=== PATIENT | female | born 1985 | race Caucasian/White ===

== ENCOUNTER 2018-04-10 10:54 | Inpatient (IN) | payer OTHER ==
[2018-04-10] MEDS ORDERED: PROMETHAZINE 25 MG/ML VIAL IV PRN ×2 (11:50)
[2018-04-10] MEDS ORDERED: BUTORPHANOL 1 MG/ML INJ IV PRN (11:50)
[2018-04-10] MEDS ORDERED: Ringers Lactate 1,000 ML IV PRN (11:50)
[2018-04-10] MEDS ORDERED: CARBOPROST TROME 250 MCG/ML IM PRN (11:50)
[2018-04-10] MEDS ORDERED: METHYLERGONOVINE 0.2MG/ML AMP IM PRN (11:50)
[2018-04-10] MEDS ORDERED: ROPIVACAINE HCL 100 ML IV ONE (11:56)
[2018-04-10] MEDS ORDERED: ROPIVACAINE HCL 0 ML ONE (11:56)
[2018-04-10] MEDS ORDERED: OXYTOCIN/LR 20 UNIT/1,000 ML BAG IV SCH (12:00)
[2018-04-10] MEDS ORDERED: Ringers Lactate 1,000 ML IV SCH (12:00)
[2018-04-10 12:13] LABS: RPR Titer ND
[2018-04-10 12:19] LABS: Absolute Lymphocytes (CBC) 1.5 K/uL (0.7-4.9); Absolute Monocytes 0.8 K/uL (0.1-1.3); Absolute Neutrophil 9.4 K/uL (1.8-8.0); Basophils % 0.4 % (0-1.3); Eosinophils % 0.6 % (0-4.4); Hematocrit 37.6 % (36.0-45.0); Lymphocytes % 12.7 % (15.3-44.8); MCH 33.1 pg (27.0-35.0); Urine Appearance CLEAR; Urine Bilirubin NEGATIVE (NEG); Urine Blood NEGATIVE (NEG); Urine Color YELLOW; Urine Glucose NEGATIVE (NEG); Urine Protein NEGATIVE (NEG); Urine Urobilinogen 0.2 mg/dL (0.2-1.0); Urine pH 7.5 (5.0-7.0)
[2018-04-10 12:21] LABS: Urine Microscopic Reflex ORDER UMIC
[2018-04-10] MEDS ORDERED: FENTANYL CITR 100 MCG/2 ML ONE (12:35)
[2018-04-10 12:40] LABS: Urine Bacteria <20 /HPF (<20); Urine Culture Reflex Order REFLEXED; Urine RBC <5 /HPF (NONE SEEN)
[2018-04-10] MEDS ORDERED: LIDOCAINE 2% MPF 5 ML VIAL ONE (12:48)
[2018-04-10 14:00] VITALS: BMI 23.0
--- NOTE | 2018-04-10 16:22 | P.OP ---
Date of Service: 04/10/18 Findings and Operative Technique Patient delivered a viable female in cephalic presentation on 04/10/18 at 13:50. Infant was delivered with nuchal cord and cord around the body. This was manually reduced. was delivered over a midline episiotomy. Once infant was delivered nose and mouth were suctioned with a suction bulb. Cord was clamped and cut and infant was placed on mother's abdomen for skin to skin bonding. Attention was then turned to the placenta which was delivered with gentle traction. The episiotomy was then assessed and noted to be a first degree. I was repaired with a 2.0 vicryl in usual fashion. EBL was noted to be 250 cc. APGARS were 9/9. Weight was found to be 7 lb 1 oz. First stage of labor was 4 hours and 45 minutes. Second stage was 10 minutes. Both mom and baby are doing well.
--- NOTE | 2018-04-10 17:03 | HP ---
Date of Admission: 04/10/2018 History Of Present Illness: Alexa is 32-year-old 2, para 1-0-0-1 who is at 38 weeks and 5 d ays gestation who presented to the office in early labor as well as decreased movement. The pa juan states overnight she feels like the baby has not been moving as much. In the office today, the heart rate was noted to be 110. Therefore, in light of this and her being 4 cm dilated, decis ion was made for the patient to be sent to labor and delivery to begin labor. The patient has obtain ed care with [facility] beginning at 10 weeks gestation. She has been compliant with all v isits. No issues in the . She had noninvasive testing done revealing a low risk f emale fetus. Pap smear has been normal. She is rubella immune. She received her Tdap vaccine in e office. HIV test is negative. RPR negative. GBS is negative. Past Medical History: Noncontributory. Past Surgical History: She had knee surgery in 2004, previous vaginal delivery in 2013. Social History: She is to the father of the baby. 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 No alcohol or drug use. She stopped smoking once she found out she was . Otherwise, she smokes daily f or the last 13 years. Physical Examination: Vital Signs: On admission, blood pressure of 125/74, pulse is 68, respirations 18, temperature 97.8. Upon presentation to labor and delivery. She began to have more contractions therefore her pain sca le increased to a 5. General: In no acute distress. Head and Neck: Normocephalic, atraumatic. Neck: Supple. Heart: Regular rate and rhythm. Abdomen: Gravid. EXTREMITIES: Bilateral lower extremities; no clubbing, cyanosis, or edema. Vagina: Normal external female genitalia. Vagina is pink, moist, and smooth. No lesions. Cervix i s 4 cm dilated. 70% effaced, -1 station. Rupture of membranes performed. Clear fluid noted. [place]; contractions every 3-5 minutes. heart rate monitoring; baseline heart rate 135, mo derate variability, accelerations noted. Category 2 tracing. Laboratory Findings: White blood cell count 11.9, hemoglobin 13.2, hematocrit 37.6, platelet count i s 188. Protein is negative. Assessment And Plan: Alexa is 32-year-old 2, para 1-0-0-1 at 38 weeks and 5 days gestation, in early labor with decreased movement. The plan is to augment her labor with Pitocin. Ruptu re of membranes performed. GBS was negative. Clear fluid was noted. Pitocin is being given. Epidu ral has been placed. We anticipate vaginal . A[facility]A Voice ID: [id number]
[2018-04-10] MEDS: IBUPROFEN 400 MG TAB PO PRN (20:13)
[2018-04-11 00:32] LABS: RPR (Rapid Plasma Reagin) NON-REACT (NON-REACT)
[2018-04-11] MEDS: IBUPROFEN 400 MG TAB PO PRN (05:20)
[2018-04-11 06:14] LABS: Hematocrit 36.9 % (36.0-45.0); MCH 33.3 pg (27.0-35.0); MPV 9.3 fL (7.6-11.3); RBC Red Blood Cell Count 3.88 M/uL (3.86-4.86)
[2018-04-11 15:31] VITALS: BP 108/72; TEMP 98.5
[2018-04-13 04:06] LABS: HBsAG Nonreactive (Nonreactive)
--- NOTE | 2018-04-14 15:55 | P.DS ---
Admission Date: 04/10/18 Discharge Date: 04/11/18 Disposition: ROUTINE DISCHARGE Discharge Condition: GOOD Brief History of Present Illness: See H&P Hospital Course: Patient did well following delivery of the . She is bonding well. She is breast feeding the baby. She denies any issues. She is ambulating without difficulty. She is tolerating a regular diet. She is voiding well. Vital Signs/Physical Exam: Temp Pulse Resp BP Pulse Ox 98.5 F 64 16 108/72 04/11/18 15:29 04/11/18 15:29 04/11/18 15:29 04/11/18 15:29 General: Alert, In no apparent distress HEENT: Atraumatic Neck: Supple Respiratory: Normal air movement Cardiovascular: No edema, Normal pulses Musculoskeletal: No clubbing, No swelling Laboratory Data at Discharge: WBC 12.6 K/uL (4.3-10.9) H 04/11/18 05:29 Hgb 12.9 g/dL (12.0-15.0) 04/11/18 05:29 Hct 36.9 % (36.0-45.0) 04/11/18 05:29 Plt Count 163 K/uL (152-406) 04/11/18 05:29 Home Medications: Vit/Fe Fumarate/FA [ 1 Plus 1 Tablet] 1 tab PO DAILY 02/18/14 Diet: Regular Activity: No lifting more than 10 lbs Followup: Valeriano Domínguez DO [ACTIVE - CAN ADMIT] -
== END 2018-04-11 17:40 | disposition home or self-care (01) | DRG 775 ==
LOC: UNDOADMIN 10:54 → 2ND-WCNRSY 10:54 → 2ND-WC 10:54
PROVIDERS: ADMIT Student in an Organized Health Care Education/Training Program; ATTEND Student in an Organized Health Care Education/Training Program
PROC: 10E0XZZ Delivery of Products of Conception, External Approach (ICD-10-PCS; principal; 2018-04-10)
PROC: 0W8NXZZ Division of Female Perineum, External Approach (ICD-10-PCS; 2018-04-10)
PROC: 10907ZC Drainage of Amniotic Fluid, Therapeutic from Products of Conception, Via Natural or Artificial Opening (ICD-10-PCS; 2018-04-10)
DX: O36.8130 Decreased fetal movements, third trimester, not applicable or unspecified (principal); O69.81X0 Labor and delivery complicated by cord around neck, without compression, not applicable or unspecified; O69.82X0 Labor and delivery complicated by other cord entanglement, without compression, not applicable or unspecified; Z3A.38 38 weeks gestation of pregnancy; Z37.0 Single live birth; Z87.891 Personal history of nicotine dependence
CPT/HCPCS: 36415; 81003; 81015; 85025; 85027; 86592; 86901; 87086; 87088; 87340; J2590; J2795; J3010